=== PATIENT | female | born 1945 | race Caucasian/White ===

== ENCOUNTER → 2016-06-24 | Day surgery (SDC) | payer MEDICARE ==
[~2016-06-24] MED LIST: ACET325T11 PO; ATOR20TA42 PO; BELLADONNA ALKALOIDS/OPIUM 60 MG SUPP ONE; CARB100S PO; DUONI NEB; ENOX40P SQ; GENTAMICIN SULFATE 80 MG/2 ML VIAL ONE; HYDR25TA35 PO; KETOROLAC TROMETHAMINE 30 MG/ML (IVP) VIAL ONE; LACTATED RINGER'S 1000 ML INJ 1,000 ML ONE; LEVO500T3 PO; LIDOCAINE HCL 2% JELLY 5 ML SYRINGE ONE; MEPERIDINE HCL 25 MG/ML VIAL ONE; MIDAZOLAM HCL 2 MG/2 ML VIAL ONE; NYST100010 TOP; OMPR20CCR PO; ONDANSETRON HCL 4 MG/2 ML VIAL IV PUSH ONE; PRED20 PO; PROP80CA PO; PROPOFOL 200 MG/20 ML AMP IV ONE; SODIUM CHLORIDE 0.9% SOLN 100 ML (PAB) BAG IV ONE; SYNT25TA PO
--- NOTE | 2016-06-24 12:42 | TN ---
cc: ELIANA SANON M.D. DATE OF SURGERY 06/24/2016 PREOPERATIVE DIAGNOSIS Right ureteral stone (ICD-10 code of N20.1). POSTOPERATIVE DIAGNOSIS Right ureteral stone (ICD-10 code of N20.1). PROCEDURE Cystourethroscopy with left ureteroscopic holmium laser lithotripsy and stone basket manipulation (CPT code 15428). INDICATION Ms. Ghosh is a 70-year-old woman with a 7-mm right pelvis and right earlier should be right ureterovesical junction calculus who presents now for definitive treatment after failing to pass the stone. FINDINGS 1. The normal bladder neck is within normal limits. However, the trigone has an altered anatomy due to the patient's pelvic prolapse and is adjacent to the bladder neck. The remainder of the bladder shows no stone, tumor, abnormal mucosa or other abnormality. The ureteral orifice on the right, however, did showed that the stone was slightly and there was evidence of the stone itself in that distal ureter. 2. The remainder of the bladder was unremarkable. The ureteroscopy showed the stone approximately 7-mm with dilation of the entire collecting system proximally. PROCEDURE The procedure as well as risks and benefits were explained to the patient. Informed consent was obtained. The patient was taken to the major operative theater where she was placed in supine position. The patient was identified as well as the operative site and universal time-out was performed in standard fashion. At this time the patient was given general anesthetic and prophylactic intravenous antibiotics consisting of gentamicin 80 mg. She was placed in low dorsal lithotomy position, prepped and draped in the usual sterile fashion. At this time a 22.5-Upper Sorbian obturator and sheath were placed into the bladder, the obturator removed and a 30-degree lens cystoscope was used. Due to the patient's abnormal anatomy, a 70-degree lens was used to identify the ureteral orifice which was almost impossible to see with the 30-degree lens due to her altered anatomy. At this time, using the 70-degree lens cystoscope and an Albarr n's bridge a 0.035-inch hybrid guidewire was able to be placed with some difficulty into the ureteral orifice and up the ureter under fluoroscopic guidance and into the renal pelvis. The cystoscope was then removed and the guidewire was placed as a safety wire and attached to the drape. At this time a semi-rigid mini-ureteroscope was then placed and into the distal ureter where the stone was identified. Using a 365-micron fiber and a variety of settings from 6 joules up, the stone was pulverized into multiple small fragments, many of which fell right into the bladder. The larger ones were basketed with a ZeroTip Nitinol basket and brought out and sent for crystallographic analysis. The scope was then placed one more time all the way up the ureter and there was no evidence of any trauma or damage to the ureter or any bleeding or other abnormalities. Decision was made not to leave a stent since there was clear urine effluxing from the ureteral orifice under direct vision. The bladder was then decompressed. Uro-Jet lidocaine was injected. The patient tolerated the procedure well, emerged from anesthetic without difficulty and was transferred to the recovery room in stable condition to be discharged home when criteria is met. There were no obvious complications. MD SERGEY Jones/MARIA G /12:15 PM /12:29 PM
== END | disposition home or self-care (01) ==
LOC: ESDC 08:23
PROVIDERS: ATTEND Urology
DX: N20.1 Calculus of ureter (principal)
CPT/HCPCS: 00918; 52353; 76000; C1769; J1580; J1885; J2175; J2250; J2405; J3010; J7120